=== PATIENT | male | born 1975 | race Caucasian/White ===

== ENCOUNTER 2019-01-07 10:26 | Emergency (ER) | payer MEDICAID ==
[~2019-01-07] VITALS: Ht 162.6 cm; Wt 85.3 kg
[2019-01-07 10:30] VITALS: Ht 162.6 cm; Wt 85.3 kg
[2019-01-07 12:16] VITALS: BP 135/78; PULSE 78; RESP 20
== END 2019-01-07 12:18 | disposition home or self-care (01) ==
LOC: E/R 10:26
DX: R06.02 Shortness of breath (principal); R40.2142 Coma scale, eyes open, spontaneous, at arrival to emergency department; R40.2362 Coma scale, best motor response, obeys commands, at arrival to emergency department
CPT/HCPCS: 71045; 93005; Z7502